=== PATIENT | male | born 1990 | race Asian ===

== ENCOUNTER 2021-10-06 16:34 | Emergency (ER) | payer BC, OTHER ==
[~2021-10-06] VITALS: Ht 170.2 cm; Wt 72.6 kg
[2021-10-06 18:59] LABS: Basophils # (auto) 0 10 ^3/uL (0-0.2); Basophils % (auto) 0.1 % (0.0-2.0); Eosinophils # (auto) 0 10 ^3/uL (0-0.8); Hematocrit 45.9 % (41.0-53.0); Hemoglobin 15.4 g/dL (13.5-17.5); Lymphocytes % (auto) 7.9 % (10.0-50.0); Mean Corpuscular Hemoglobin 30.6 pg (28.0-32.0); Mean Corpuscular Hgb Conc. 33.6 g/dL (32.0-36.0); Mean Corpuscular Volume 91.2 fL (80.0-100.0); Monocytes # (auto) 0.5 10 ^3/uL (0-1.3); Monocytes % (auto) 3.7 % (0.0-12.0); Neutrophils # (auto) 10.9 10 ^3/uL (1.6-8.6); Neutrophils % (auto) 88.3 % (37.0-80.0); Nucleated Red Blood Cells % 0.1 %; Red Blood Cells 5.03 10^6/uL (4.5-5.90); Red Cell Distribution Width 13.1 % (11.8-14.3); White Blood Cell 12.3 10^3/uL (4.4-10.8)
[2021-10-06 19:09] LABS: Albumin 4.6 g/dL (3.4-5.0); Calcium 9.2 mg/dL (8.5-10.1); Potassium 5.1 mmol/L (3.5-5.1)
[2021-10-06 19:18] LABS: BUN/Creatinine Ratio 13.6; Bilirubin, Total 0.5 mg/dL (0.2-1.0); Total Protein 9.4 g/dL (6.4-8.2)
[2021-10-06 22:08] LABS: Urine Amorphous Crystal FEW /hpf (None Seen); Urine Bacteria FEW /hpf (None Seen); Urine Blood Negative /uL (Negative); Urine Mucus FEW (None Seen); Urine WBC 4 /hpf (0 - 3)
[2021-10-06 22:15] LABS: Magnesium 2.9 mg/dL (1.6-2.6)
[2021-10-06 22:16] LABS: Amphetamine Screen, Urine NEGATIVE (NEGATIVE); Barbiturate Scree,Urine NEGATIVE (NEGATIVE); Benzodiazephine Screen, Urine POSITIVE (NEGATIVE); Cannabinoid Screen, Urine POSITIVE (NEGATIVE); Cocaine Screen, Urine NEGATIVE (NEGATIVE); Phencyclidine Screen, Urine NEGATIVE (NEGATIVE)
[2021-10-06 22:23] LABS: Opiate Scree,Urine NEGATIVE (NEGATIVE)
[2021-10-07 00:01] VITALS: BP 122/54
== END 2021-10-07 01:40 | disposition home or self-care (01) ==
LOC: ER 16:34 → EDBD 16:34 → ER 10-07 01:40
DX: R56.9 Unspecified convulsions (principal)
CPT/HCPCS: 36415; 70450; 80053; 80307; 80320; 81001; 83735; 85025; 93005